=== PATIENT | male | born 1975 | race Caucasian/White ===

== ENCOUNTER 2018-09-21 21:25 | Emergency (ER) | payer OTHER ==
[~2018-09-21] VITALS: Ht 200.7 cm; Wt 100.6 kg
[2018-09-21 21:27] VITALS: BP 120/75
--- NOTE | 2018-09-21 22:44 | NUR ---
PT D/C WITH D/C SUMMARY. PT DENIES ANY OTHER NEEDS PERTAINING TO THIS VISIT. PT PLACED INTO SLING WITH HOMECARE INSTRUCTIONS. PT VERBALIZES UNDERSTANDING OF SLING APPLICATION AND USE.
== END 2018-09-21 22:48 | disposition home or self-care (01) ==
LOC: ED 22:26
DX: S43.402A Unspecified sprain of left shoulder joint, initial encounter (principal); W19.XXXA Unspecified fall, initial encounter; Y93.89 Activity, other specified; Y92.61 Building [any] under construction as the place of occurrence of the external cause; Y99.8 Other external cause status
CPT/HCPCS: 99283